=== PATIENT | female | born 1945 | race Caucasian/White ===

== ENCOUNTER → 2021-03-13 | Day surgery (SDC) | payer MEDICARE ==
[~2021-03-13] VITALS: Ht 160 cm; Wt 156.0 kg
[~2021-03-13] MED LIST: FAMO20TA5 PO; FERR325C PO; FURO20TA3 PO; LEVO50TA5 PO; LIDOCAINE 2% PF 5 ML VIAL. ONE; MULT-445 PO; Oxycodone Hcl/Acetaminophen PO; PRAV40TA2 PO; PROPOFOL 10 MG/ML (20ML) VIAL. IV ONE
[2021-03-13 07:35] VITALS: BP 151/79
[2021-03-13] MEDS: IV RINGERS,LACTATED 1000ML 1,000 ML IV SCH (07:38)
[2021-03-13 08:58] VITALS: BP 144/80
== END | disposition home or self-care (01) ==
LOC: ENDOS 07:00
PROVIDERS: ATTEND Internal Medicine Gastroenterology
DX: Z12.11 Encounter for screening for malignant neoplasm of colon (principal); K64.0 First degree hemorrhoids; K57.30 Diverticulosis of large intestine without perforation or abscess without bleeding; E78.00 Pure hypercholesterolemia, unspecified; I10 Essential (primary) hypertension; M19.90 Unspecified osteoarthritis, unspecified site; E03.9 Hypothyroidism, unspecified; Z85.038 Personal history of other malignant neoplasm of large intestine; Z90.49 Acquired absence of other specified parts of digestive tract; Z98.890 Other specified postprocedural states; Z79.899 Other long term (current) drug therapy; Z87.891 Personal history of nicotine dependence; Z20.822 Contact with and (suspected) exposure to COVID-19
CPT/HCPCS: 87426; G0105; J2704; 45378